=== PATIENT | male | born 1970 | race Caucasian/White ===

== ENCOUNTER → 2020-06-17 | Outpatient (CLI) | payer OTHER ==
[~2020-06-17] MED LIST: ATOR20TA58 PO; GADOTERATE 7.5 MMOL/15ML VIAL. IVP ONE; LISI30TA4 PO; SERT25TA PO
--- NOTE | 2020-06-17 16:28 | KCIC ---
EXAM: MRI ABDOMEN WITH AND WITHOUT CONTRAST. HISTORY: Liver lesion, elevated liver enzymes. TECHNIQUE: MRI of the abdomen was performed before and after the intravenous administration of 24 mL Clariscan. COMPARISON: None. FINDINGS: Liver: Hepatic parenchymal signal loss on opposed phase images indicates severe diffuse hepatic steatosis. The liver is at least mildly enlarged. An arterially enhancing lesion in segment 3 measures 2.0 x 1.4 cm. It has a delayed enhancing central scar. There is mild intralesional fatty sparing. There is no washout. There is also focal fatty sparing along the gallbladder fossa. There are no suspicious hepatic lesions. Biliary tree: The gallbladder is unremarkable. The common duct is not dilated. There are no suspicious pancreatic parenchymal lesions. The pancreatic duct is not dilated. Other findings: The spleen is mildly to moderately enlarged at 15.5 cm. The kidneys and adrenal glands are unremarkable. IMPRESSION: 1. A 2.0 cm arterially enhancing lesion in segment 3 is most likely a benign focal nodular hyperplasia in the absence of known malignancy. It is somewhat atypical based on characteristics and may have some features of a hepatic adenoma. Follow-up MRI in 6 months could confirm stability if there is persistent concern. 2. Severe diffuse hepatic steatosis. Mild hepatosplenomegaly. Electronically signed by: Carl Muniz MD (06/17/2020 4:25 PM) [id number]
== END | disposition home or self-care (01) ==
LOC: KCIC MRI 08:15
PROVIDERS: ATTEND Family Medicine
DX: K76.0 Fatty (change of) liver, not elsewhere classified (principal); R16.1 Splenomegaly, not elsewhere classified; R93.2 Abnormal findings on diagnostic imaging of liver and biliary tract
CPT/HCPCS: 74183; A9575